=== PATIENT | female | born 1985 | race African-American/Black ===

== ENCOUNTER 2017-11-24 16:58 | Inpatient (IN) | payer OTHER ==
[~2017-11-24] VITALS: Ht 162.6 cm; Wt 80.9 kg
[2017-11-24 19:09] LABS: BASOPHIL % 0.6 % (0-2)
[2017-11-24 19:12] LABS: PLATELET COUNT 559 x10^3mcL (130-400); RED CELL DISTRIBUTION WIDTH 15.6 % (11.5-14.5)
[2017-11-24 19:13] LABS: AMPHETAMINE QUAL UR NONE DETECTED (NEG <=1000)
[2017-11-24 19:17] LABS: CALCIUM 8.8 mg/dL (8.5-10.1); CARBON DIOXIDE 20.5 mmol/L (21-32); CHLORIDE SERUM 99 mmol/L (98-107); CREATININE SERUM 0.8 mg/dL (0.6-1.0); GFR1 > 60 mL/min; GLUCOSE SERUM 92 mg/dL (74-106); POTASSIUM SERUM 3.8 mmol/L (3.5-5.1); SODIUM SERUM 138 mmol/L (136-145)
[2017-11-24 19:23] LABS: ALBUMIN 3.9 g/dL (3.4-5.0); ALKALINE PHOSPHATASE 67 U/L (46-116); ALT/SGPT 30 U/L (14-59); AST/SGOT 28 U/L (15-37)
[2017-11-24 19:34] LABS: TOTAL PROTEIN, SERUM 8.7 g/dL (6.4-8.2)
[2017-11-24] MEDS ORDERED: NOR5 PO (22:51)
[2017-11-24 23:22] VITALS: BP 129/83
[2017-11-24 23:25] VITALS: Ht 162.6 cm; Wt 80.9 kg
[2017-11-25 03:04] LABS: BASOPHIL % 0.3 % (0-2)
[2017-11-25 03:07] LABS: CALCIUM 8.2 mg/dL (8.5-10.1); CARBON DIOXIDE 23.2 mmol/L (21-32); CHLORIDE SERUM 101 mmol/L (98-107); CREATININE SERUM 0.8 mg/dL (0.6-1.0); GFR1 > 60 mL/min; GLUCOSE SERUM 97 mg/dL (74-106); POTASSIUM SERUM 3.8 mmol/L (3.5-5.1); SODIUM SERUM 136 mmol/L (136-145)
[2017-11-25 03:15] LABS: PLATELET COUNT 423 x10^3mcL (130-400); RED CELL DISTRIBUTION WIDTH 15.6 % (11.5-14.5)
[2017-11-25 04:12] LABS: CHOLESTEROL/HDL RATIO 2.7; T3 TOTAL 0.66 ng/mL
[2017-11-25 04:14] LABS: FREE T4 0.93 ng/dL (0.76-1.46); FREE THYROXINE INDEX 2.5 ug/dL (1.4-4.5)
[2017-11-25 06:20] VITALS: BP 117/64
[2017-11-25 07:32] LABS: UA SPECIFIC GRAVITY 1.015 (1.005-1.035); microscopic required? YES; urine erythrocyte 3+ (NEGATIVE)
[2017-11-25 10:34] VITALS: BP 118/89
[2017-11-25 14:01] VITALS: BP 131/84
[2017-11-25] MEDS ORDERED: PAXIL10 MG PO (16:02)
[2017-11-25] MEDS ORDERED: NORCO1 TA2 PO (16:10)
[2017-11-25 16:47] VITALS: BP 115/71
[2017-11-25 16:55] VITALS: BP 115/71
== END 2017-11-25 17:55 | disposition home or self-care (01) | DRG 756 ==
LOC: ED 16:58 → DU 22:44
PROVIDERS: Emergency Medicine; Family Medicine
DX: F41.9 Anxiety disorder, unspecified (principal); D47.3 Essential (hemorrhagic) thrombocythemia; E66.9 Obesity, unspecified; D64.9 Anemia, unspecified; F12.10 Cannabis abuse, uncomplicated; R00.0 Tachycardia, unspecified; Z82.49 Family history of ischemic heart disease and other diseases of the circulatory system; M06.9 Rheumatoid arthritis, unspecified; Z68.30 Body mass index [BMI] 30.0-30.9, adult
CPT/HCPCS: 83880; 84439; J1885; J2060; J3010; J7030; Q0092; Q9967

== ENCOUNTER 2017-11-26 11:27 | Emergency (ER) | payer OTHER ==
[~2017-11-26] VITALS: Ht 162.6 cm; Wt 77.6 kg
[~2017-11-26 11:27] MED LIST: NOR5 PO; NORCO1 TA2 PO; PAXIL10 MG PO
[2017-11-26 11:33] VITALS: Ht 162.6 cm; Wt 77.6 kg
[2017-11-26 13:19] LABS: BASOPHIL % 0.2 % (0-2); PLATELET COUNT 450 x10^3mcL (130-400); RED CELL DISTRIBUTION WIDTH 15.3 % (11.5-14.5)
[2017-11-26 13:35] LABS: CALCIUM 10.5 mg/dL (8.5-10.1); CARBON DIOXIDE 22.6 mmol/L (21-32); CHLORIDE SERUM 98 mmol/L (98-107); CREATININE SERUM 0.7 mg/dL (0.6-1.0); GFR1 > 60 mL/min; GLUCOSE SERUM 108 mg/dL (74-106); POTASSIUM SERUM 3.7 mmol/L (3.5-5.1); SODIUM SERUM 135 mmol/L (136-145)
[2017-11-26 13:39] LABS: ALBUMIN 3.9 g/dL (3.4-5.0); ALKALINE PHOSPHATASE 64 U/L (46-116); ALT/SGPT 25 U/L (14-59); AST/SGOT 21 U/L (15-37); BILIRUBIN TOTAL 0.36 mg/dL (0.20-1.00)
[2017-11-26 13:40] LABS: TOTAL PROTEIN, SERUM 8.7 g/dL (6.4-8.2)
[2017-11-26 14:58] VITALS: BP 136/79
== END 2017-11-26 15:21 | disposition home or self-care (01) ==
LOC: ED 11:27
PROVIDERS: Emergency Medicine
DX: R07.89 Other chest pain (principal); F41.9 Anxiety disorder, unspecified; I10 Essential (primary) hypertension
CPT/HCPCS: 36415; 83880; J1170; J2060; Q0092

== ENCOUNTER 2017-12-15 12:54 | Emergency (ER) | payer OTHER ==
[~2017-12-15] VITALS: Ht 162.6 cm; Wt 80.0 kg
[2017-12-15 12:56] VITALS: Ht 162.6 cm; Wt 80.0 kg
[2017-12-15 13:38] LABS: BASOPHIL % 0.6 % (0-2)
[2017-12-15 13:39] LABS: PLATELET COUNT 435 x10^3mcL (130-400); RED CELL DISTRIBUTION WIDTH 15.8 % (11.5-14.5)
[2017-12-15 13:59] LABS: ALBUMIN 3.9 g/dL (3.4-5.0); ALKALINE PHOSPHATASE 63 U/L (46-116); ALT/SGPT 51 U/L (14-59); AST/SGOT 47 U/L (15-37); BILIRUBIN TOTAL 0.3 mg/dL (0.20-1.00); CALCIUM 8.7 mg/dL (8.5-10.1); CARBON DIOXIDE 27.2 mmol/L (21-32); CHLORIDE SERUM 98 mmol/L (98-107); CREATININE SERUM 0.9 mg/dL (0.6-1.0); GFR1 > 60 mL/min; GLUCOSE SERUM 125 mg/dL (74-106); LIPASE 77 IU/L (73-393); POTASSIUM SERUM 3.9 mmol/L (3.5-5.1); SODIUM SERUM 140 mmol/L (136-145)
[2017-12-15 14:04] LABS: TOTAL PROTEIN, SERUM 8.9 g/dL (6.4-8.2)
[2017-12-15 15:55] VITALS: BP 156/106
== END 2017-12-15 15:56 | disposition home or self-care (01) ==
LOC: ED 12:54
PROVIDERS: Emergency Medicine
DX: K29.70 Gastritis, unspecified, without bleeding (principal); E86.0 Dehydration; I10 Essential (primary) hypertension
CPT/HCPCS: J2405; J3010; J7030; Q0092

== ENCOUNTER 2018-02-19 21:52 | Inpatient (IN) | payer OTHER ==
[~2018-02-19] VITALS: Ht 162.6 cm; Wt 78.2 kg
[2018-02-19 22:13] VITALS: Ht 162.6 cm; Wt 78.2 kg
[2018-02-19 22:37] LABS: microscopic required? NO
[2018-02-19 22:42] LABS: BASOPHIL % 0.3 % (0-2); PLATELET COUNT 364 x10^3mcL (130-400)
[2018-02-19 22:44] LABS: RED CELL DISTRIBUTION WIDTH 16.5 % (11.5-14.5); UA SPECIFIC GRAVITY <=1.005 (1.005-1.035); urine erythrocyte NEGATIVE (NEGATIVE)
[2018-02-19 22:56] LABS: AMPHETAMINE QUAL UR NONE DETECTED (NEG <=1000); CALCIUM 9.6 mg/dL (8.5-10.1); CARBON DIOXIDE 24.2 mmol/L (21-32); CHLORIDE SERUM 103 mmol/L (98-107); CREATININE SERUM 0.5 mg/dL (0.6-1.0); GFR1 > 60 mL/min; GLUCOSE SERUM 86 mg/dL (74-106); POTASSIUM SERUM 3.5 mmol/L (3.5-5.1); SODIUM SERUM 138 mmol/L (136-145)
[2018-02-19 23:00] LABS: ALKALINE PHOSPHATASE 31 U/L (46-116); ALT/SGPT 24 U/L (14-59); AMYLASE 76 U/L (25-115); AST/SGOT 18 U/L (15-37); BILIRUBIN TOTAL 0.14 mg/dL (0.20-1.00); CHOLESTEROL 157 mg/dL (<200); LIPASE 136 IU/L (73-393); TOTAL PROTEIN, SERUM 7.2 g/dL (6.4-8.2)
[2018-02-19 23:01] LABS: ALBUMIN 3.1 g/dL (3.4-5.0)
[2018-02-20] MEDS ORDERED: ATENOLOL25 MG (01:03)
[2018-02-20 01:38] LABS: CHOLESTEROL/HDL RATIO 3.7; MAGNESIUM 1.5 mg/dL (1.8-2.4); PHOSPHOROUS 3.8 mg/dL (2.5-4.9)
[2018-02-20 01:45] LABS: FREE THYROXINE INDEX 2.6 ug/dL (1.4-4.5); T4(THYROXINE) 9.6 ug/dL (4.7-13.3)
[2018-02-20 02:07] VITALS: BP 115/65
[2018-02-20 02:21] LABS: T3 TOTAL 1.66 ng/mL
[2018-02-20 03:56] LABS: RED BLOOD CELLS 3.46 M/mm3 (4.10-5.10)
[2018-02-20 04:06] LABS: IRON 43 ug/dL (50-170); TOTAL IRON BINDING CAPACITY 313 ug/dL (250-450)
[2018-02-20 04:47] VITALS: BP 109/58
[2018-02-20 06:42] LABS: CALCIUM 9.3 mg/dL (8.5-10.1); CARBON DIOXIDE 22.4 mmol/L (21-32); CHLORIDE SERUM 104 mmol/L (98-107); CREATININE SERUM 0.4 mg/dL (0.6-1.0); GFR1 > 60 mL/min; GLUCOSE SERUM 85 mg/dL (74-106); POTASSIUM SERUM 3.4 mmol/L (3.5-5.1); SODIUM SERUM 135 mmol/L (136-145)
[2018-02-20 06:53] LABS: BASOPHIL % 0.3 % (0-2); PLATELET COUNT 324 x10^3mcL (130-400)
[2018-02-20 07:12] LABS: RED CELL DISTRIBUTION WIDTH 15.7 % (11.5-14.5)
[2018-02-20 08:54] VITALS: BP 108/62
[2018-02-20 12:16] VITALS: BP 107/56
[2018-02-20] MEDS ORDERED: METAMUCIL FIBE3.4 GM PO (14:50)
== END 2018-02-20 16:10 | disposition home or self-care (01) | DRG 566 ==
LOC: ED 21:52 → DU 02-20 00:52
PROVIDERS: Emergency Medicine; Family Medicine
DX: O46.8X1 Other antepartum hemorrhage, first trimester (principal); O16.1 Unspecified maternal hypertension, first trimester; O99.321 Drug use complicating pregnancy, first trimester; E83.42 Hypomagnesemia; F12.90 Cannabis use, unspecified, uncomplicated; D50.0 Iron deficiency anemia secondary to blood loss (chronic); M06.9 Rheumatoid arthritis, unspecified; G89.29 Other chronic pain; G47.00 Insomnia, unspecified; O99.011 Anemia complicating pregnancy, first trimester; K62.5 Hemorrhage of anus and rectum; Z3A.13 13 weeks gestation of pregnancy; Z80.0 Family history of malignant neoplasm of digestive organs; Z82.49 Family history of ischemic heart disease and other diseases of the circulatory system
CPT/HCPCS: 83880; 84439; G0480; J7030